=== PATIENT | male | born 1960 | race Caucasian/White ===

== ENCOUNTER 2018-11-17 07:41 | Emergency (ER) | payer MEDICARE ==
[2018-11-17] MEDS ORDERED: MVI, Adult with Vitamin K 10 ML, Folic Acid 1 MG, Thiamine 100 MG in Lactated Ringers 1... IV ONE ×4 (07:59)
[2018-11-17] MEDS ORDERED: Pantoprazole 40 MG Vial IVPUSH ONE (07:59)
[2018-11-17] MEDS ORDERED: GI Cocktail Oral Solution 30 ML PO ONE (07:59)
--- NOTE | 2018-11-17 08:01 | EDM.PDOC ---
ED HPI GENERAL MEDICAL PROBLEM - General Chief Complaint: Chest Pain Stated Complaint: SICK, HIGH BP Time Seen by Provider: 11/17/18 08:00 Source of Information: Reports: Patient History Limitations: Reports: No Limitations - History of Present Illness INITIAL COMMENTS - FREE TEXT/NARRATIVE: Patient comes emergency Department today with complaints of chest pain shortness of breath and overall malaise and fatigue. The patient from his on the 16th of this month. Since that time he has been drinking alcohol quite heavily every day. He has not been taking his blood pressure diabetic medications. Today's been complaining of difficulty breathing shakiness and anxiety diaphoresis and chest pain. Feels like a burning sensation in the middle of his chest. He has had a cough that is noncongested. No fever no chills. No nausea no vomiting. No abdominal pain. He has not had pancreatitis in the past. He did notice some very black stools today. No weakness dizziness lightheadedness. No palpitations. No syncope. - Related Data Allergies Allergy/AdvReac Type Severity Reaction Status Date / Time No Known Allergies Allergy Verified 06/06/15 11:01 Home Meds: Home Meds Albuterol [Proventil HFA] 6.7 gm INH Q6H PRN #1 inhaler 06/06/15 [Rx] Aspirin 81 mg PO DAILY 03/08/16 [History] Lisinopril 10 mg PO DAILY 11/17/18 [History] metFORMIN [Glucophage XR] 500 mg PO DAILY 11/17/18 [History] Past Medical History Cardiovascular History: Reports: Hypertension Musculoskeletal History: Reports: Fracture - Past Surgical History HEENT Surgical History: Reports: Oral Surgery, Other (See Below) Musculoskeletal Surgical History: Reports: Arthroscopic Knee ED ROS GENERAL - Review of Systems Review Of Systems: ROS reveals no pertinent complaints other than HPI. ED EXAM, GENERAL - Physical Exam Exam: See Below Exam Limited By: No Limitations General Appearance: Alert, WD/WN Eye Exam: Bilateral Eye: EOMI, Normal Inspection Ears: Normal External Exam, Normal TMs Nose: Normal Inspection, Normal Mucosa Throat/Mouth: Normal Inspection, Normal Lips, Normal Teeth, Normal Oropharynx, No Airway Compromise Head: Atraumatic Neck: Normal Inspection, Supple Respiratory/Chest: No Respiratory Distress, Lungs Clear, Normal Breath Sounds, No Accessory Muscle Use. No: Chest Non-Tender (tenderness to the sternum region , without any signs of trauma no bruising swelling ecchymosis bony deformities or step-offs. No subcutaneous emphysema.) Cardiovascular: Normal Peripheral Pulses, Regular Rate, Rhythm, Tachycardia Peripheral Pulses: 2+: Radial (L), Radial (R), Posterior Tibial (L), Posterior Tibial (R), Dorsalis Pedis (L), Dorsalis Pedis (R) GI/Abdominal: Normal Bowel Sounds, Soft, Non-Tender, No Organomegaly Back Exam: Normal Inspection, Full Range of Motion. No: CVA Tenderness (L), CVA Tenderness (R) Extremities: Normal Inspection, Normal Range of Motion, Non-Tender, No Pedal Edema, Normal Capillary Refill Neurological: Alert, Oriented, Normal Cognition, No Motor/Sensory Deficits Psychiatric: Anxious Skin Exam: Intact, No Rash, Cool, Diaphoretic, Other (flushed appearance). No: Normal Color (flushed) Lymphatic: No Adenopathy EKG INTERPRETATION EKG Date: 11/17/18 Time: 07:49 Rhythm: NSR Rate (Beats/Min): 103 [place]: Normal P-Wave: Present QRS: Normal ST-T: Normal QT: Normal Comparison: No Change Course - Vital Signs Last Recorded V/S: Last Vital Signs Temp 36.7 C 11/17/18 07:58 Pulse 108 H 11/17/18 07:58 Resp 20 11/17/18 07:58 BP 187/92 H 11/17/18 07:58 Pulse Ox 98 11/17/18 07:58 - Orders/Labs/Meds Orders: Active Orders 24 hr Category Date Time Status EKG Documentation Completion [RC] STAT Care 11/17/18 07:50 Active Labs: Laboratory Tests 11/17/18 11/17/18 11/17/18 Range/Units 07:55 07:55 07:55 WBC 8.2 (5.0-10.0) 10^3/uL RBC 5.68 (4.6-6.2) 10^6/uL Hgb 17.6 (14.0-18.0) g/dL Hct 49.2 (40.0-54.0) % MCV 86.6 D (80-100) fL MCH 31.0 (27.0-34.0) pg MCHC 35.8 H (33.0-35.0) g/dL Plt Count 167 (150-450) 10^3/uL Neut % (Auto) 53.9 (42.2-75.2) % Lymph % (Auto) 27.6 (20.5-50.1) % Dale % (Auto) 17.0 H (2-8) % Eos % (Auto) 0.9 L (1.0-3.0) % Baso % (Auto) 0.6 (0.0-1.0) % D-Dimer, Quantitative 155 (0-400) ng/mL Sodium 136 (135-145) mmol/L Potassium 3.1 L (3.6-5.0) mmol/L Chloride 93 L (101-111) mmol/L Carbon Dioxide 25.0 (21.0-31.0) mmol/L Anion Gap 21.1 BUN 4 L (7-18) mg/dL Creatinine 0.6 (0.6-1.3) mg/dL Est Cr Clr Drug Dosing TNP Estimated GFR (MDRD) > 60 BUN/Creatinine Ratio 6.66 Glucose 264 H (74-105) mg/dL Calcium 8.8 (8.4-10.2) mg/dl Magnesium (1.8-2.5) mg/dL Total Bilirubin 1.7 H (0.2-1.0) mg/dL AST 88 H (10-42) IU/L ALT 113 H (10-60) IU/L Alkaline Phosphatase 135 H (42-121) IU/L Troponin I < 0.02 (0.00-0.02) ng/ml Total Protein 7.9 (6.7-8.2) g/dl Albumin 3.9 (3.2-5.5) g/dl Globulin 4.0 Albumin/Globulin Ratio 0.98 Lipase (22-51) U/L Ethyl Alcohol < 5 mg/dL 11/17/18 11/17/18 Range/Units 07:55 07:55 WBC (5.0-10.0) 10^3/uL RBC (4.6-6.2) 10^6/uL Hgb (14.0-18.0) g/dL Hct (40.0-54.0) % MCV (80-100) fL MCH (27.0-34.0) pg MCHC (33.0-35.0) g/dL Plt Count (150-450) 10^3/uL Neut % (Auto) (42.2-75.2) % Lymph % (Auto) (20.5-50.1) % [place] % (Auto) (2-8) % Eos % (Auto) (1.0-3.0) % Baso % (Auto) (0.0-1.0) % D-Dimer, Quantitative (0-400) ng/mL Sodium (135-145) mmol/L Potassium (3.6-5.0) mmol/L Chloride (101-111) mmol/L Carbon Dioxide (21.0-31.0) mmol/L Anion Gap BUN (7-18) mg/dL Creatinine (0.6-1.3) mg/dL Est Cr Clr Drug Dosing Estimated GFR (MDRD) BUN/Creatinine Ratio Glucose (74-105) mg/dL Calcium (8.4-10.2) mg/dl Magnesium 1.6 L (1.8-2.5) mg/dL Total Bilirubin (0.2-1.0) mg/dL AST (10-42) IU/L ALT (10-60) IU/L Alkaline Phosphatase (42-121) IU/L Troponin I (0.00-0.02) ng/ml Total Protein (6.7-8.2) g/dl Albumin (3.2-5.5) g/dl Globulin Albumin/Globulin Ratio Lipase 32 (22-51) U/L Ethyl Alcohol mg/dL Meds: Medications Discontinued Medications Generic Name Dose Route Start Last Admin Trade Name Freq PRN Reason Stop Dose Admin Al Hydroxide/Mg Hydroxide 30 ml 11/17/18 07:59 11/17/18 08:13 Gi Cocktail PO 11/17/18 08:00 30 ml ONETIME ONE Administration Multivitamins/Minerals 10 ml/ 1,011.2 mls @ 999 mls/hr 11/17/18 07:59 08:13 Folic Acid 1 mg/ Thiamine HCl IV 11/17/18 08:59 999 mls/hr 100 mg/ Lactated Ringer's ONETIME ONE Administration Lactated Ringer's 1,000 mls @ 1,000 mls/hr 11/17/18 09:26 11/17/18 09:10 Ringers, Lactated IV 11/17/18 10:25 1,000 mls/hr .BOLUS ONE Administration Lorazepam 1 mg 11/17/18 08:43 11/17/18 09:09 Ativan IVPUSH 11/17/18 08:44 1 mg ONETIME ONE Administration Pantoprazole Sodium 40 mg 11/17/18 07:59 11/17/18 08:13 Protonix Iv IVPUSH 11/17/18 08:00 40 mg ONETIME ONE Administration Potassium Chloride 40 meq 11/17/18 08:50 11/17/18 09:14 Potassium Chloride Solution PO 11/17/18 08:51 40 meq NOW STA Administration Potassium Chloride 40 meq 11/17/18 10:03 11/17/18 10:48 Klor-Con 10 PO 11/17/18 10:04 40 meq ONETIME ONE Administration - Radiology Interpretation Free Text/Narrative:: Chest x-ray per radiology no acute findings. - Re-Assessments/Exams Free Text/Narrative Re-Assessment/Exam: 11/17/18 08:47 The patient was given a banana bag. GI cocktail with improvement of the pain in his chest. Protonix 40 mg IV push. 1 mg Ativan IV push. 11/17/18 09:59 His EKG and troponin is negative. He does have some hypokalemia as well as hypomagnesemia. He was given 40 mEq oral potassium. There was magnesium in the banana bag. He does feel much better following the above therapy. His shortness of breath and chest pain is resolved. I really feel that his symptomology is primarily caused by alcohol withdrawal as well as alcoholic gastritis. Maulik more fluids. Send him home with some Ativan and omeprazole. He is comfortable with this plan. Departure - Departure Time of Disposition: 10:34 Disposition: Home, Self-Care 01 Clinical Impression: Hypokalemia, Hypomagnesemia, Non-cardiac chest pain Alcohol withdrawal Qualifiers: Complication of substance-induced condition: uncomplicated Qualified Code(s): F10.230 - Alcohol dependence with withdrawal, uncomplicated Alcoholic gastritis with hemorrhage Qualifiers: Chronicity: acute Qualified Code(s): K29.21 - Alcoholic gastritis with bleeding Instructions: Alcohol Withdrawal, [id number], Gastrointestinal Bleeding, Easy -to-Read, Gastritis, Adult, [id number] Referrals: PCP,None [Primary Care Provider] - Forms: ED Department Discharge Additional Instructions: Lots of fluids over the next couple of days to include Gatorade and/or Powerade. No alcohol ingestion. Make sure that you eat regular meals. Omeprazole 1 tablet every day for the next 28 days. Prescription given to the patient. Carafate 1g, 1 tab 4 times a day before meals and bedtime. RX given to the patient. Lorazepam, 1 tablet twice daily as needed for alcohol withdrawal anxiety SOB shaking and nausea. RX given to the patient. Will refill your chronic medications. Lisinopril 1 tab every day. and metformin 500mg 1 tab every day. RX for 15 days. Rest of the refill of your chronic medications will have to be completed by your PCP. Return to the ED if new or worsening symptoms. Follow up with PCP in the next week for recheck and refills of chronic medications. - My Orders Last 24 Hours: My Active Orders 11/17/18 07:50 EKG Documentation Completion [RC] STAT - Assessment/Plan Last 24 Hours: My Active Orders 11/17/18 07:50 EKG Documentation Completion [RC] STAT Assessment:: CP none cardiac-from alcoholic gastritis most likely Alcoholic gastritis Alcohol withdrawal. Hypokalemia dehydration. Plan: Lots of fluids over the next couple of days to include Gatorade and/or Powerade. No alcohol ingestion. Make sure that you eat regular meals. Omeprazole 1 tablet every day for the next 28 days. Prescription given to the patient. Carafate 1g, 1 tab 4 times a day before meals and bedtime. RX given to the patient. Lorazepam, 1 tablet twice daily as needed for alcohol withdrawal anxiety SOB shaking and nausea. RX given to the patient. Will refill your chronic medications. Lisinopril 1 tab every day. and metformin 500mg 1 tab every day. RX for 15 days. Rest of the refill of your chronic medications will have to be completed by your PCP. Return to the ED if new or worsening symptoms. Follow up with PCP in the next week for recheck and refills of chronic medications.
[2018-11-17 08:05] VITALS: BP 187/92
[2018-11-17 08:29] LABS: ANION GAP 21.1; CHLORIDE,CL 93 mmol/L (101-111); SODIUM,NA 136 mmol/L (135-145)
[2018-11-17] MEDS ORDERED: LORazepam 2 MG/ML Syringe IVPUSH ONE (08:43)
[2018-11-17] MEDS ORDERED: Potassium Chloride 10% 20 MEQ/15 ML Soln 15 ML UD Cup PO STA (08:50)
[2018-11-17] MEDS ORDERED: Lactated Ringers 1,000 ML IV ONE (09:26)
[2018-11-17] MEDS ORDERED: Potassium Chloride 10 MEQ Tab.ER PO ONE (10:03)
== END 2018-11-17 11:51 | disposition home or self-care (01) ==
LOC: DL.ED 07:41
DX: K29.21 Alcoholic gastritis with bleeding (principal); F10.230 Alcohol dependence with withdrawal, uncomplicated; Y90.0 Blood alcohol level of less than 20 mg/100 ml; R07.89 Other chest pain; E87.6 Hypokalemia; E86.0 Dehydration; E83.42 Hypomagnesemia; I10 Essential (primary) hypertension; Z79.82 Long term (current) use of aspirin; Z79.899 Other long term (current) drug therapy
CPT/HCPCS: 36415; 71046; 80053; 82272; 83690; 83735; 84484; 85025; 85379; 93005; 96361; 96365; 96375; 99285; A9270; C9113; G0480; J2060; J3411; J7120; J3490

== ENCOUNTER 2021-02-15 11:39 | Emergency (ER) | payer MEDICARE, MEDICAID ==
[2021-02-15] MEDS ORDERED: MVI, Adult with Vitamin K 10 ML, Thiamine 100 MG, Folic Acid 1 MG in Lactated Ringers 1... IV ONE ×4 (11:50)
[2021-02-15 11:59] VITALS: BP 165/92; PULSE 101
[2021-02-15 12:30] LABS: ANION GAP 17.4 mEq/L (7-13); CHLORIDE,CL 104 mmol/L (98-107); SODIUM,NA 141 mmol/L (136-145)
[2021-02-15] MEDS ORDERED: Magnesium Sulfate/Water 2 GM in Premix Bag 1 BAG IV ONE (13:06)
[2021-02-15] MEDS ORDERED: 50% Dextrose in Water 50 ML Syringe IVPUSH ONE ×2 (13:06→15:22)
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
[2021-02-15] MEDS ORDERED: Lactated Ringers 1,000 ML IV ONE (14:14)
[2021-02-15] MEDS ORDERED: 50% Dextrose in Water 50 ML Syringe ONE (15:20)
== END 2021-02-15 16:43 | disposition home or self-care (01) ==
LOC: DL.ED 11:39
DX: E11.649 Type 2 diabetes mellitus with hypoglycemia without coma (principal); E83.42 Hypomagnesemia; E87.5 Hyperkalemia; F10.230 Alcohol dependence with withdrawal, uncomplicated; I10 Essential (primary) hypertension; E66.9 Obesity, unspecified; Z68.32 Body mass index [BMI] 32.0-32.9, adult; Z72.0 Tobacco use; Y90.0 Blood alcohol level of less than 20 mg/100 ml; Z79.82 Long term (current) use of aspirin; Z79.84 Long term (current) use of oral hypoglycemic drugs; Z79.899 Other long term (current) drug therapy
CPT/HCPCS: 36415; 80053; 80307; 82947; 83605; 83735; 84484; 85025; 86140; 96365; 96366; 96367; 96375; 96376; 99284; 99284-25; J3411; J3475; J3490; J7120

== ENCOUNTER 2024-04-24 05:51 | Day surgery (SDC) | payer MEDICARE, OTHER ==
[2024-04-24] MEDS ORDERED: fentaNYL 100 MCG/2 ML SDV IV ONE (05:52)
[2024-04-24] MEDS ORDERED: Midazolam 1 MG/ML 2 ML SDV IV ONE (05:52)
[2024-04-24] MEDS: Dextrose 5%-0.45% NaCl 1,000 ML IV SCH (06:14)
[2024-04-24] MEDS ORDERED: fentaNYL 100 MCG/2 ML SDV ONE (06:16)
[2024-04-24] MEDS ORDERED: Midazolam 1 MG/ML 2 ML SDV ONE (06:16)
[2024-04-24] MEDS: fentaNYL 100 MCG/2 ML SDV IV ONE ×2 (06:56→06:57)
[2024-04-24] MEDS: Midazolam 1 MG/ML 2 ML SDV IV ONE ×6 (06:57→07:06)
== END 2024-04-24 08:24 | disposition home or self-care (01) ==
LOC: DL.ENDO 05:51
PROVIDERS: ATTEND Internal Medicine Gastroenterology
DX: Z12.11 Encounter for screening for malignant neoplasm of colon (principal); D12.4 Benign neoplasm of descending colon; K57.30 Diverticulosis of large intestine without perforation or abscess without bleeding; K64.8 Other hemorrhoids; I10 Essential (primary) hypertension; E11.9 Type 2 diabetes mellitus without complications; K21.9 Gastro-esophageal reflux disease without esophagitis; F41.1 Generalized anxiety disorder
CPT/HCPCS: 88305; J2250; J3010; J7799